=== PATIENT | male | born 1940 | race Caucasian/White ===

== ENCOUNTER 2018-04-14 11:07 | Day surgery (SDC) | payer MEDICARE ==
--- NOTE | 2018-04-14 07:29 | History and Physical Report ---
DATE: 04/13/2018. CHIEF COMPLAINT AND HISTORY OF CHIEF COMPLAINT: This patient presents with a history of a postlaminectomy radiculopathy. Although a spinal cord stimulator has been implanted, it does not appear to be adequate in controlling pain. The patient is here for an implanted spinal catheter infusion trial with hydromorphone to determine if the implantation of a permanent system can be of any value in pain control. PAST MEDICAL HISTORY: Peripheral neuropathy, radiculopathy, coronary artery disease, degenerative arthritis. PAST SURGICAL HISTORY: Elbow surgery, knee surgery, hip replacement, spinal surgery. MEDICATIONS ON ADMISSION: To be provided. ALLERGIES: Nitroglycerin. SOCIAL HISTORY: Caffeine. FAMILY HISTORY: Noncontributory. REVIEW OF SYSTEMS: The patient seems appropriate and in no acute distress. The remainder of the systems review shows peripheral vascular disease, bladder dysfunction, degenerative arthritis, depression. PHYSICAL EXAMINATION: General: Height and weight unavailable. Vital Signs: Not available. HEENT: Within normal limits. Lungs: Clear. Heart: Regular rate and rhythm. Abdomen: Nontender. Musculoskeletal: Examination of the musculoskeletal system shows diffuse tenderness throughout the lumbar spine. Range of motion does produce pain throughout the neck and extending into both shoulders and arms. Low back pain is also identified. Range of motion produces pain moving into both legs across the front and back surface. Sensory barraza appear to be intact, although lower extremity weakness and sensory abnormalities across the front and back surface are noted. Ambulation: Somewhat antalgic. No assistive device utilized. Neurologic: Cranial nerves are intact. IMPRESSION: 1. CERVICAL RADICULOPATHY, ICD-10 CODE M54.12. 2. POSTLAMINECTOMY SYNDROME, ICD-10 CODE M96.1. 3. LUMBAR RADICULOPATHY, ICD-10 CODE M54.16 AND M54.17. PLAN: The patient is here for an implanted spinal catheter infusion trial with hydromorphone to determine if the implantation of a permanent system can be of any value in pain control. He has identified the worst area of his pain as the neck, shoulder, and arms. We will attempt an intermediate catheter position to assist with control, not only of his neck, shoulder, and arms, but also of his low back and legs. The implanted catheter trial will involve an incision. This has been carefully reviewed and discussed. Should the implanted catheter trial fail, then we will need to open the incision to remove the catheter. The implanted catheter reduces the number of needle placements or instrumentations into the spine. By reducing this, we reduce the risk of trauma to the nervous system. The implanted catheter trial technique will also minimize the potential risks of spinal headache and other side effects. Should the implanted catheter trial fail, then implanting the pump into the subcutaneous margin would just involve interfacing with the previously implanted catheter. A trial will be conducted for two weeks. During this period of time, the patient will come to the office on three separate occasions for a potential increase. At the end of the trial period, we will either implant the full device or remove the implanted catheter. All of the potential risks, side effects, and complications have been reviewed and discussed. He understands and has consented. Information from the denier control operator was presented. Direct contact with a clinical specialist from the company was also provided. We will consider the procedure outpatient, although the blood patch will require that the patient lie flat for four hours and then be slowly elevated over one hour. This would increase the probability of requiring an overnight stay. JOB NUMBER: [id number] cc: Doris Lamar
[~2018-04-14 11:07] MED LIST: ACETAMINOPHEN 1,000 MG/100 ML BTL IV ONE; CEFAZOLIN 2 Gram 2 GM/50 ML BAG IVPB ONE; FAMOTIDINE 20MG TABLET PO ONE; HYDROMORPHONE PF 2MG/ML AMP 0.008 MG in 0.9 % SODIUM CHLORIDE 10ML VIA 0.996 ML IV ONE; HYDROMORPHONE PF 2MG/ML AMP 8 MG in 0.9 % SODIUM CHLORIDE 500ML 496 ML IV ONE; MECLIZINE 25 MG TABLET PO ONE; METOCLOPRAMIDE 10 MG TABLET PO ONE
[2018-04-14] MEDS ORDERED: LIDOCAINE 1% MDV (10MG/ML) 20ML VIAL SQ ONE (11:08)
[2018-04-14] MEDS ORDERED: BUPIVACAINE 0.5% W/EPI MPF 30 ML VIAL IVP ONE (11:08)
[2018-04-14] MEDS ORDERED: MIDAZOLAM HCL 2MG/2ML VIAL IV ONE (11:08)
[2018-04-14] MEDS ORDERED: LIDOCAINE 1% W/EPI 1:200,000 MPF 30ML SQ ONE (11:08)
[2018-04-14] MEDS ORDERED: PROPOFOL 10 MG/ML VIAL IV ONE (11:08)
[2018-04-14] MEDS ORDERED: FENTANYL PF 100MCG/2ML VIAL IV ONE (11:08)
[2018-04-14] MEDS ORDERED: HYDROCODONE/APAP 7.5/325MG TABLET PO PRN ×2 (17:08)
[2018-04-14] MEDS ORDERED: OXYCODONE/APAP 10MG-325MG TABLET PO PRN ×2 (17:08)
[2018-04-14] MEDS ORDERED: HYDROMORPHONE HCL 2 MG/ML VIAL IM PRN ×2 (17:08)
[2018-04-14] MEDS ORDERED: SENNOSIDES/DOCUSATE SODIUM UD CAPSULE PO PRN ×2 (17:08)
[2018-04-14] MEDS ORDERED: DIPHENHYDRAMINE HCL 25 MG CAPSULE PO PRN ×2 (17:08)
[2018-04-14] MEDS ORDERED: DIPHENHYDRAMINE HCL 50 MG/ML VIAL IVP PRN ×2 (17:08)
[2018-04-14] MEDS ORDERED: AL HYDROX/MAG HYDROX 30ML UD PO PRN (17:08)
[2018-04-14] MEDS ORDERED: NALOXONE 0.4 MG/1 ML VIAL IVP PRN (17:08)
[2018-04-14] MEDS ORDERED: TEMAZEPAM 15 MG CAPSULE PO PRN ×2 (17:08)
[2018-04-14] MEDS ORDERED: METOCLOPRAMIDE 10 MG TABLET PO PRN (17:08)
[2018-04-14] MEDS ORDERED: METOCLOPRAMIDE HCL 10 MG/2 ML VIAL IVP PRN (17:08)
[2018-04-14] MEDS ORDERED: ACETAMINOPHEN 325 MG TAB PO PRN ×2 (17:08)
[2018-04-14] MEDS: RINGERS SOLUTION,LACTATED 1,000 ML IV SCH (18:52)
[2018-04-14] MEDS ORDERED: LEVEMIR FLEXTOUCH 100 UNIT/ML INSULIN PEN SQ SCH (21:00)
[2018-04-14] MEDS ORDERED: FLUOXETINE HCL 20 MG CAPSULE PO SCH (22:00)
[2018-04-14] MEDS ORDERED: GABAPENTIN 300 MG CAPSULE PO SCH (22:00)
[2018-04-14] MEDS: CEFAZOLIN 1 Gram 1 GM/50 ML BAG IVPB SCH ×2 (22:49→23:18)
[2018-04-14] MEDS ORDERED: CEFAZOLIN 2 Gram 2 GM/50 ML BAG IVPB SCH (23:00)
[2018-04-15] MEDS: RINGERS SOLUTION,LACTATED 1,000 ML IV SCH (03:18)
[2018-04-15] MEDS: CEFAZOLIN 1 Gram 1 GM/50 ML BAG IVPB SCH ×2 (06:29→07:17)
[2018-04-15] MEDS ORDERED: SIMVASTATIN 20 MG TABLET PO SCH (10:00)
[2018-04-15] MEDS ORDERED: METOPROLOL SUCC 50 MG TABLET PO SCH (10:00)
--- NOTE | 2018-04-15 15:11 | Operative Note - Ferro ---
DATE OF SURGERY: 04/14/18 PREOPERATIVE DIAGNOSES: POST LUMBAR LAMINECTOMY SYNDROME, ICD-10 CODE = M96.1 WITH RADICULOPATHY, ICD- 10 CODE = M54.16 AND M54.17. OPERATION: 1. FLUOROSCOPICALLY-GUIDED ACCESS SPINAL SPACE AT L3-4. PLACEMENT OF THIN- WALLED SPINAL CATHETER T6. 2. DIAGNOSTIC MYELOGRAPHY WITH RADIOLOGIC SUPERVISION AND INTERPRETATION. 3. INCISION, SUBCUTANEOUS DISSECTION, AND ANCHORING OF SPINAL CATHETER TO SUPRASPINOUS FASCIA WITH ANCHORING DEVICE AND NONABSORBABLE SUTURE. 4. INCISION, SUBCUTANEOUS DISSECTION, AND CREATION OF SUBCUTANEOUS POUCH AT LEFT FLANK FOR PLACEMENT ULTIMATELY OF PUMP IDENTIFIED PROBABLE 20 ML. 5. TUNNELING BETWEEN MIDLINE INCISION INTO FLANK, TUNNELING SPINAL CATHETER INTO FLANK POUCH. INTERFACE INDWELLING SPINAL CATHETER WITH SECOND CATHETER COMPONENT WITH CONNECTOR. SECOND CATHETER COMPONENT TUNNELED 6 SM SUPERIOR EXITING SKIN. SECOND CATHETER COMPONENT INTERFACED TO PUMP SET TO DELIVER HYDROMORPHONE AT 0.08 MG PER DAY. 6. CLOSURE OF MIDLINE INCISION, VICRYL FOR FASCIA, RUNNING NYLON FOR SKIN. CLOSURE OF LEFT POSTERIOR POUCH RUNNING NYLON FOR SKIN. 7. NO BLOOD PATCH DUE TO LAMINECTOMY LEVELS. SURGEON: LUIS A RODGERS D.O. ANESTHESIA: LOCAL SEDATION. ANESTHESIA PROVIDER: CECILIA URIARTE CRNA. INDICATION: This patient presents with a history of intractable lumbar radiculopathy, post laminectomy in source. Due to the failure of all therapies, he is here for a spinal infusion trial with implanted catheter Hydromorphone to determine if the implantation of a permanent system can be of any value in pain control. PROCEDURE: Intravenous line, vital sign monitoring, IV sedation, prepped and draped sterile technique. Under imaging, the spinal interspace was imaged at L3- 4 at the upper aspect of decompression laminectomy. Skin infiltrated, a 20- gauge spinal needle paramedian approach beveled inserted into the spinal space. With CSF flow, a thin-walled spinal catheter was advanced and positioned T6. Diagnostic myelography performed; resulting flow characteristics were smooth and linear in the space, appropriate, no obstructions, midline flow. A bolus of Hydromorphone 0.004 mg given into the spinal space. The catheter was clamped to stop CSF leak. The skin above and below the needle infiltrated, incision made, and subcutaneous dissection was conducted to the supraspinous fascia. The needle was removed and the catheter was anchored to the supraspinous fascia with a nonabsorbable Ethibond suture. Catheter clamped. At the left flank, for the possible pump placement site, skin infiltrated, incision made, and subcutaneous dissection was conducted to form a small pouch. A tunneling tool was then used to carry the spinal catheter into the flank pouch and then the spinal catheter was interfaced with a second catheter component by way of a connector. The second catheter component was tunneled 6 cm superior from this spot. The external catheter was then interfaced to an external pump, which was set to deliver Hydromorphone at 0.08 mg a day. The skin at the left posterior pouch was then closed with a running nylon. The midline incision was closed Vicryl for fascia and a running nylon for skin. Appropriate dressings were placed. There was no blood patch performed because of the decompression laminectomy and the penetration point for the catheter placement. With all of the dressings placed, the pump was started at 0.08 mg a day. He was transported to the Recovery Room stable, no side-effects from the procedure or the sedation. Full functionality of the extremities. He was flat, pillow under head and knees. He will stay flat for four hours, slowly elevated for one. He will stay overnight for observation and discharged in the morning. DISCHARGE INSTRUCTIONS: 1. Sites to remain clean and dry. No showering or bathing in any way that would disrupt dressings. If it happens, contact the clinic. 2. Standard medications resumed including Levaquin, the antibiotic, 500 mg once a day for 14 days. 3. Spinal opioid side-effects including; respiratory depression, nausea, vomiting, constipation, urinary retention, light-headedness, or rash have all been discussed and reviewed. Should this happen, contact the clinic or go to a local Emergency Room. All other instructions provided, numbers to contact with problems given. He will be seen in the office within the next 48-72 hours for possible increase. cc: Dr. Ji Guaman JOB NUMBER: [id number] MTDD
--- NOTE | 2018-04-17 00:26 | RADIOLOGY REPORT ---
EXAM: SPINE, 1 VIEW HISTORY: PAIN PUMP TRIAL. TECHNIQUE: Thoracic spine single view. COMPARISON: 11/21/2015. FINDINGS: Two linear radiopaque devices are again seen overlying the thoracic spinal canal. These overlie the mid T6 vertebra and the mid T8 vertebra. Post sternotomy changes are again noted. ICD/pacemaker remains in place. Diffuse arthritic changes in the thoracic spine with no acute process. IMPRESSION: FINDINGS ABOVE SIMILAR TO THE PRIOR STUDY DATED 11/21/2015. JOB [facility]BER: [id number] [facility]
== END 2018-04-15 10:10 | disposition home or self-care (01) ==
LOC: SUR 11:07 → MEDSURG 16:49 → SUR 04-15 10:10
PROVIDERS: ATTEND Pain Medicine Interventional Pain Medicine
DX: M96.1 Postlaminectomy syndrome, not elsewhere classified (principal); M54.16 Radiculopathy, lumbar region; M54.17 Radiculopathy, lumbosacral region; E11.9 Type 2 diabetes mellitus without complications; E78.00 Pure hypercholesterolemia, unspecified; I25.2 Old myocardial infarction; Z95.1 Presence of aortocoronary bypass graft
CPT/HCPCS: 62350; 62362; 01936; 36416; 82948; 72020; 94760; Q9967; J3010; J0690 ×3; J1815; J1170; J7040; J7120

== ENCOUNTER 2018-04-28 08:19 | Day surgery (SDC) | payer MEDICARE ==
--- NOTE | 2018-04-28 06:09 | History and Physical Report ---
DATE: 04/28/2018. CHIEF COMPLAINT AND HISTORY OF CHIEF COMPLAINT: This patient presents with an implanted catheter infusion trial with hydromorphone. He has developed side effects including a metal taste in his mouth, nausea, and vomiting. He has been into the emergency room for a complete evaluation where meningitis and other issues were ruled out. He is here to have his spinal medication changed and for maintenance of the implanted catheter. The hydromorphone which is currently being infused will be changed to fentanyl and bupivacaine mixture. PAST MEDICAL HISTORY: Unchanged. PAST SURGICAL HISTORY: Unchanged. MEDICATIONS ON ADMISSION: To be provided. ALLERGIES: Nitroglycerin. SOCIAL HISTORY: Unchanged. FAMILY HISTORY: Unchanged. REVIEW OF SYSTEMS: The patient is appropriate and in no acute distress. PHYSICAL EXAMINATION: General: Height and weight unavailable. Vital Signs: Not available. HEENT: Within normal limits. Lungs: Clear. Heart: Regular rate and rhythm. Abdomen: Nontender. Musculoskeletal: Examination of the musculoskeletal system shows the dressings for the implanted catheter trial are intact. The external infusion device is currently off. His primary pain pattern is postlaminectomy low back, hip, and leg. There have been no sensory or motor changes since his last evaluation at the beginning of the implanted catheter trial. Neurologic: Cranial nerves are intact. IMPRESSION: 1. POSTLUMBAR LAMINECTOMY SYNDROME, ICD-10 CODE M96.1. 2. RADICULOPATHY, ICD-10 CODE M54.16 AND M54.17. 3. CHRONIC CERVICAL RADICULOPATHY, ICD-10 CODE M54.12. 4. IMPLANTED SPINAL CATHETER INFUSION TRIAL WITH HYDROMORPHONE. PLAN: The patient is here for removal of the hydromorphone and initiation of a fentanyl and bupivacaine trial for one seven-day cycle. At the end of the seven days, we will either take out the implanted catheter or implant the pump with fentanyl and bupivacaine. JOB NUMBER: [id number] cc: Doris Lamar
[~2018-04-28 08:19] MED LIST changes: +FENTANYL CITRATE/PF 5,000 MCG, BUPIVACAINE 0.5% PF 20 MG in 0.9 % SODIUM CHLORIDE 500ML... IJ ONE; +FENTANYL PF 100MCG/2ML VIAL IVP ONE; +HYDROMORPHONE HCL 0.04 GM in 0.9 % SODIUM CHLORIDE 10ML VIA 20 ML IV ONE; -HYDROMORPHONE PF 2MG/ML AMP 8 MG in 0.9 % SODIUM CHLORIDE 500ML 496 ML IV ONE
[2018-04-28] MEDS ORDERED: FENTANYL PF 100MCG/2ML VIAL IV ONE (08:20)
[2018-04-28] MEDS ORDERED: MIDAZOLAM HCL 2MG/2ML VIAL IV ONE (08:20)
--- NOTE | 2018-04-28 21:42 | Operative Note - Ferro ---
DATE OF SURGERY: 04/28/18 PREOPERATIVE DIAGNOSES: 1. POST LUMBAR LAMINECTOMY SYNDROME, ICD-10 CODE = M96.1 WITH LUMBAR RADICULOPATHY, ICD-10 CODE = M54.16 AND M54.17. 2. IMPLANTED SPINAL CATHETER INFUSION TRIAL HYDROMORPHONE WITH SIDE EFFECTS. SURGERY: 1. REMOVAL OF EXTERNAL DRESSING, REMOVAL OF EXTERNAL SPINAL INFUSION BAG WITH CATHETER, DISCARDED INFUSION HYDROMORPHONE. 2. STERILE PREP, STERILE TECHNIQUE USING EXTERNAL COMPONENT OF IMPLANTED SPINAL CATHETER WITH DIAGNOSTIC MYELOGRAPHY WITH RADIOLOGIC SUPERVISION AND INTERPRETATION CONFIRMING APPROPRIATE FLOW CHARACTERISTICS AND PATENCY IN CATHETER. 3. SPINAL BOLUS FENTANYL 50 MCG FOR INTERFACE NEW SPINAL INFUSION PUMP DELIVERING FENTANYL AND BUPIVACAINE. 75 MCG PER DAY FENTANYL, 0.4 MG BUPIVACAINE PER DAY. 4. STERILE DRESSING PLACED SECURING CATHETER AND ALL CONNECTIONS UNDER STERILE DRESSING. PATIENT TRANSPORTED TO RECOVERY ROOM STABLE, NO SIDE EFFECTS FROM THE PROCEDURE OR THE SEDATION. PATIENT WILL BE MONITORED FOR TWO TO THREE HOURS AND THEN DISCHARGED. DISCHARGE INSTRUCTIONS: 1. The sites and dressings will remain clean and dry. No showering or bathing in any way that would disrupt dressings. 2. His Dilaudid spinal infusion trial was discontinued. The implanted catheter itself remained. We cleared the implanted catheter of all Dilaudid, primed and started the infusion with Fentanyl and Bupivacaine. A 50 mcg Fentanyl bolus was given intraoperative. 3. He will be monitored for side effects, such as lightheadedness or drowsiness and will contact the clinic should any abnormal findings develop. The extended trial will run a maximum of seven days. During this period of time , we will evaluate pain control, functionality, quality of life, and medication reduction. At the end of the seven-day additional trial period, we will either remove the implanted catheter or implant the pump infusing Fentanyl and Bupivacaine. All instructions provided, numbers to contact if problems given. He will be evaluated. cc: Dr. Ji Guaman JOB NUMBER: [id number] MTDD
== END 2018-04-28 13:40 | disposition home or self-care (01) ==
LOC: SUR 08:19
PROVIDERS: ATTEND Pain Medicine Interventional Pain Medicine
DX: M96.1 Postlaminectomy syndrome, not elsewhere classified (principal); M54.16 Radiculopathy, lumbar region; M54.17 Radiculopathy, lumbosacral region; I10 Essential (primary) hypertension; E11.9 Type 2 diabetes mellitus without complications; Z79.4 Long term (current) use of insulin; E78.00 Pure hypercholesterolemia, unspecified
CPT/HCPCS: 63685; 00300; J3010 ×2; J0690; J1170; J7040

== ENCOUNTER 2018-05-05 13:29 | Day surgery (SDC) | payer MEDICARE ==
--- NOTE | 2018-05-05 07:41 | History and Physical - Ferro ---
CHIEF COMPLAINT/HISTORY OF CHIEF COMPLAINT: This patient with a history of post laminectomy lumbar syndrome has an implanted spinal catheter infusion trial with Fentanyl and Bupivacaine. He had 75% pain control. Due to the failure of all therapy and the success of the trial, he presents today for implantation of a permanent system. PAST MEDICAL HISTORY: Peripheral neuropathy, radiculopathy, coronary artery disease, and degenerative arthritis. PAST SURGICAL HISTORY: Elbow surgery, knee surgery, hip replacement, and spinal surgery. MEDICATIONS ON ADMISSION: List to be provided. ALLERGIES: NITROGLYCERIN. FAMILY/PSYCHOSOCIAL HISTORY: Social history - Caffeine. Family history - Noncontributory. SYSTEMS REVIEW: The patient is appropriate in no acute distress. The remainder of the systems review is positive for peripheral vascular disease, bladder dysfunction, and degenerative arthritis. PHYSICAL EXAMINATION: Height and weight are not available. HEENT: Within normal limits. LUNGS: Clear. HEART: Regular rate and rhythm. ABDOMEN: Nontender. MUSCULOSKELETAL: Examination of the musculoskeletal system shows diffuse tenderness throughout the lumbar spine. The dressings for the implanted catheter are intact. The externalized catheter and the external pump are intact and functional. His primary pain pattern is radiculopathy into his lower extremities. There is motor and sensory field abnormalities to both lower extremities across the front and back surface. Ambulation - No assistive device utilized. NEUROLOGIC: Cranial nerves are intact. IMPRESSION: 1. POST LUMBAR LAMINECTOMY SYNDROME, ICD-10 CODE M96.1 WITH RADICULOPATHY ICD- 10 CODE M54.16 AND M54.17. 2. IMPLANTED SPINAL CATHETER INFUSION TRIAL WITH FENTANYL AND BUPIVACAINE. PLAN: Due to the success of the pump trial and the failure of all other therapies, he presents today for implantation of a permanent system. The procedure will be considered outpatient, although an overnight stay will be evaluated. The potential risks, side effects, and complications have all been reviewed and discussed. J[facility]BER: [id number] [facility]
[~2018-05-05 13:29] MED LIST changes: +BUPIVACAINE HCL IV ONE; +FENTANYL CITRATE IV ONE; -FENTANYL CITRATE/PF 5,000 MCG, BUPIVACAINE 0.5% PF 20 MG in 0.9 % SODIUM CHLORIDE 500ML... IJ ONE; -HYDROMORPHONE HCL 0.04 GM in 0.9 % SODIUM CHLORIDE 10ML VIA 20 ML IV ONE; -HYDROMORPHONE PF 2MG/ML AMP 0.008 MG in 0.9 % SODIUM CHLORIDE 10ML VIA 0.996 ML IV ONE; +[UNRECOGNIZED DRUG - OTHER] IV ONE
[2018-05-05] MEDS ORDERED: CEFAZOLIN 1G VIAL IM ONE (13:30)
[2018-05-05] MEDS ORDERED: BUPIVACAINE 0.5% W/EPI MPF 30 ML VIAL IVP ONE (13:30)
[2018-05-05] MEDS ORDERED: LIDOCAINE 1% W/EPI 1:200,000 MPF 30ML SQ ONE (13:30)
[2018-05-05] MEDS ORDERED: HYDROMORPHONE HCL 2 MG/ML VIAL IM PRN ×2 (18:56)
[2018-05-05] MEDS ORDERED: TEMAZEPAM 15 MG CAPSULE PO PRN ×2 (18:56)
[2018-05-05] MEDS ORDERED: HYDROCODONE/APAP 7.5/325MG TABLET PO PRN (18:56)
[2018-05-05] MEDS ORDERED: METOCLOPRAMIDE HCL 10 MG/2 ML VIAL IVP PRN (18:56)
[2018-05-05] MEDS ORDERED: ACETAMINOPHEN 325 MG TAB PO PRN ×2 (18:56)
[2018-05-05] MEDS ORDERED: NALOXONE 0.4 MG/1 ML VIAL IVP PRN (18:56)
[2018-05-05] MEDS ORDERED: METOCLOPRAMIDE 10 MG TABLET PO PRN (18:56)
[2018-05-05] MEDS ORDERED: AL HYDROX/MAG HYDROX 30ML UD PO PRN (18:56)
[2018-05-05] MEDS ORDERED: DIPHENHYDRAMINE HCL 25 MG CAPSULE PO PRN ×2 (18:56)
[2018-05-05] MEDS ORDERED: RINGERS SOLUTION,LACTATED 1,000 ML IV SCH (18:56)
[2018-05-05] MEDS ORDERED: SENNOSIDES/DOCUSATE SODIUM UD CAPSULE PO PRN ×2 (18:56)
[2018-05-05] MEDS ORDERED: CEFAZOLIN 2 Gram 2 GM/50 ML BAG IVPB SCH (18:56)
[2018-05-05] MEDS ORDERED: OXYCODONE/APAP 10MG-325MG TABLET PO PRN ×2 (18:56)
[2018-05-05] MEDS ORDERED: DIPHENHYDRAMINE HCL 50 MG/ML VIAL IVP PRN ×2 (18:56)
[2018-05-05] MEDS: HYDROCODONE/APAP 7.5/325MG TABLET PO PRN (21:00)
[2018-05-05] MEDS: FLUOXETINE HCL 20 MG CAPSULE PO SCH (21:50)
[2018-05-05] MEDS: GABAPENTIN 300 MG CAPSULE PO SCH (21:50)
[2018-05-05] MEDS ORDERED: LEVEMIR FLEXTOUCH 100 UNIT/ML INSULIN PEN SQ SCH (22:00)
[2018-05-05] MEDS ORDERED: SIMVASTATIN 20 MG TABLET PO SCH (22:00)
[2018-05-06] MEDS ORDERED: CEFAZOLIN 1 Gram 1 GM/50 ML BAG IVPB SCH (01:00)
[2018-05-06] MEDS: HYDROCODONE/APAP 7.5/325MG TABLET PO PRN (01:17)
[2018-05-06] MEDS: GABAPENTIN 300 MG CAPSULE PO SCH (09:33)
[2018-05-06] MEDS: FLUOXETINE HCL 20 MG CAPSULE PO SCH (09:33)
[2018-05-06] MEDS ORDERED: METOPROLOL SUCC 50 MG TABLET PO SCH (10:00)
[2018-05-06] MEDS ORDERED: CYANOCOBALAMIN (VITAMIN B-12) 100 MCG TABLET PO SCH (10:00)
--- NOTE | 2018-05-07 13:24 | Operative Note - Ferro ---
DATE OF SURGERY: 05/05/18. PREOPERATIVE DIAGNOSES: 1. POST LUMBAR LAMINECTOMY SYNDROME, ICD-10 CODE = M96.1 WITH RADICULOPATHY, ICD-10 CODE = M54.16 AND M54.17. 2. IMPLANTED SPINAL CATHETER INFUSION TRIAL WITH FENTANYL AND BUPIVACAINE. SURGERY: 1. FLUOROSCOPIC-GUIDED INCISION, SUBCUTANEOUS DISSECTION, AND REMOVAL OF EXTERNAL CATHETER. 2. INCISION, SUBCUTANEOUS DISSECTION, AND REVISION OF INTERNAL CATHETER WITH SECONDARY CATHETER COMPONENT BY WAY OF A CONNECTOR. 3. INCISION, SUBCUTANEOUS DISSECTION, AND CREATION OF SUBCUTANEOUS POUCH AT LEFT FLANK FOR PLACEMENT OF PUMP IDENTIFIED A MEDTRONIC 20 ML PROGRAMMABLE. 4. PLACEMENT OF PUMP ONTO FIELD PRE-FILLED WITH FENTANYL AND BUPIVACAINE, INTERFACED WITH REVISED CATHETER. 5. PLACEMENT OF PUMP/CATHETER COMBINATION INTO POUCH LEFT FLANK SECURING TO POSTERIOR FACIA WITH NONABSORBABLE SUTURE, THREE-POINT PUMP EYELETS. 6. PLACEMENT OF #24 GAUGE DOTSON NEEDLE INTO ACCESS PORT PROGRAMMABLE PUMP, ASPIRATING AND CLEARING CATHETER OF OPIOID AND CSF MIXTURE. 7. DIAGNOSTIC MYELOGRAPHY WITH RADIOLOGIC SUPERVISION AND INTERPRETATION. 8. PROGRAMMING OF PUMP TO DELIVER BY CONTINUOUS INFUSION FENTANYL AND BUPIVACAINE AT 75 MCG FENTANYL PER DAY. 9. CLOSURE OF INCISIONS USING STRATAFIX SUTURE, 2-0 FOR FASCIA AND 3-0 RUNNING SUBCUTICULAR. DERMABOND CLOSURE. The patient was transported to the Recovery Room stable, no unusual pain or side -effects. SURGEON: LUIS A RODGERS D.O. ANESTHESIA: LOCAL SEDATION. ANESTHESIA PROVIDER: MILANA RODRIGEZ CRNA INDICATIONS: This patient presents with a history of a post laminectomy radiculopathy. An indwelling spinal catheter infusion trial initially with Hydromorphone producing side-effects was changed to Fentanyl and Bupivacaine at 75% to 85% pain control. ongoing with 75% to 85% pain control. Due to the failure of all other therapies and the success of the spinal trial, he is here for implantation of a permanent system by his request. PROCEDURE: Intravenous line, vital sign monitoring, IV sedation, prepped draped sterile technique, patient positioned prone. Previous incisional pouch at the left flank was prepped and the running nylon suture removed. Although the patient requested a posterior/inferior belt line pump pouch, because of waist limited tissue and hip replacement, it was not advised. Pump placement at the left flank was then cleared with and patient. The skin infiltrated, incision and subcutaneous dissection was conducted to form a pouch of suitable size and depth for the pump, a Medtronic 20 mL programmable. The interface between the permanent indwelling spinal catheter and the external catheter was identified, clamped, the catheter cut and the external catheter was removed by pulling away from the incision. The remaining internal catheter was then revised and resected with a second catheter component by way of a connector. A pump placed onto the field, 20 mL programmable Medtronic, pre-filled with Fentanyl and Bupivacaine. The revised catheter was interfaced to the pump. Antibiotic irrigation, Bovie for hemostasis. The pump was placed into the pouch , secured to the posterior fascia with nonabsorbable suture at three-point pump eyelets. With the pump secured into the pouch, a #24 gauge Dotson needle was inserted into the access port and 1 mL of catheter contents was aspirated clearing the catheter of opioid and CSF mixture. Diagnostic myelography was then performed through the access port. The resulting contrast moving through the pump/catheter connection showed full and linear functionality. The tip of the catheter at T6 identified with normal appropriate flow characteristics noted. Full functionality at that point noted. The incision was then closed using STRATAFIX suture, 2-0 for fascia and 3-0 for skin. Dermabond closure approximating the wound. The pump was then programmed to deliver by continuous infusion Fentanyl and Bupivacaine at 75 mcg of Fentanyl a day. He was transported to the Recovery Room stable with no side-effects from the procedure or the sedation. The patient will be kept overnight for observation. IN THE MORNING, DISCHARGE INSTRUCTIONS : 1. The sites are to remain clean and dry. The Dermabond will allow showering but not sitting in water. 2. Standard medications will be resumed. He will continue his Levaquin, the antibiotic, 500 mg for another 7 days. 3. He will be seen in the office in the next 7 to 10 days. The office will contact the patient at home to set up the appointment. Until that point in time when he is seen, he is to keep his activities low. No bend, lift, push, pull or other strenuous activities. 4. Spinal opioid side-effects of respiratory depression, nausea, vomiting, constipation, urinary retention, light headedness have all been discussed and reviewed. 5. He was then prepared for discharge. cc: Dr. Ji Guaman JOB NUMBER: [id number] [facility]
== END 2018-05-06 09:41 | disposition home or self-care (01) ==
LOC: SUR 13:29 → MEDSURG 18:54 → SUR 05-06 09:41
PROVIDERS: ATTEND Pain Medicine Interventional Pain Medicine
DX: M96.1 Postlaminectomy syndrome, not elsewhere classified (principal); M54.16 Radiculopathy, lumbar region; M54.17 Radiculopathy, lumbosacral region; I10 Essential (primary) hypertension; E11.9 Type 2 diabetes mellitus without complications; Z79.4 Long term (current) use of insulin; E78.00 Pure hypercholesterolemia, unspecified
CPT/HCPCS: 36416; 62367; 82948; C1755; J0690; J3010; J7120